=== PATIENT | female | born 1985 | race Caucasian/White ===

== ENCOUNTER 2019-06-13 01:25 | Emergency (ER) | payer OTHER ==
[2019-06-13 02:58] LABS: ABS Basophils 0.1 10^3/ul (0-0.2); ABS Eosinophils 0.1 10^3/ul (0-0.6); ABS Lymphocytes 1.7 10^3/ul (1.0-4.8); ABS Monocytes 0.7 10^3/ul (0-0.8); Eosinophil % 0.6 %; Hematocrit 36 % (35-47); Hemoglobin 12.4 g/dL (12.0-16.0); Mean Corpuscular HGB Conc 35 g/dL (31-36); Mean Corpuscular Hemoglobin 32 pg (27-31); Mean Corpuscular Volume 92 fL (80-97); Mean Platelet Volume 7.2 fL (7.4-10.4); Platelet Count 228 10^3/uL (150-450); Red Blood Count 3.87 10^6 /uL (3.70-4.87); Red Cell Distribution Width 14 % (10-15); White Blood Count 15.6 10^3/uL (3.5-10.8)
[2019-06-13 03:06] LABS: Albumin 3.8 g/dL (3.2-5.2); Calcium 9.6 mg/dL (8.6-10.3); Potassium 3.7 mmol/L (3.5-5.0); Total Bilirubin 0.4 mg/dL (0.2-1.0)
[2019-06-13 03:12] LABS: Albumin/Globulin Ratio 1.5 (1-3); EGFR African American 143.1 (>60); EGFR Non-African American 118.3 (>60); Globulin 2.6 g/dL (2-4); INR 1.01 (0.82-1.09); Total Protein 6.4 g/dL (6.4-8.9)
--- NOTE | 2019-06-13 03:13 | ED ---
- HPI Summary HPI Summary: 33 year old female presents to the ED with a chief complaint of abdominal cramps starting this afternoon. 15 weeks , . Last menstrual cycle . EDC 12/04/19. Patient states she is here from out of town. Patient reports red spotting with normal vaginal discharge when straining trying to have a bowel movement this evening. Abdominal cramps, gradually became worse, and prevented her from sleeping at 2300. She went to the bathroom again. Was able to have a bowel movement and passed gas. She did have more red spotting with wiping. Has not had any blood in the underwear, only with wiping.. she had periodic cramps every 2.5 min in lower abdomen. Patient reports urinating more than usual. No dysuria. She denies any fevers or chills. No nausea vomiting. No back pain. She states they have seen the heartbeat twice on ultrasound. Have not heard it in regular OB visit with a Doppler. She is type O+. FHx HTN, hypothyroidism, and cancer. Patient does not use tobacco, alcohol, or drugs. - History of Current Complaint Chief Complaint: EDOBProblems Stated Complaint: 15 WKS /CRAMPING PER PT Time Seen by Provider: 06/13/19 02:13 Hx Obtained From: Patient Chief Complaint: Pain - Abd cramps, Vaginal Bleeding, Vaginal Discharge Onset/Duration: Started Hours Ago, Still Present Timing: Intermittent - Cramps every 2.5 min, Lasting Hours Severity: Mild Current Severity: Mild Pain Intensity: 3 Location of Pain: Diffuse Character: Cramping Aggravating Factors: Nothing Alleviating Factors: Nothing Associated Signs and Symptoms: Positive: Urinary Symptoms, Vaginal Bleeding or Discharge - Allergies/Home Medications Allergies/Adverse Reactions: Allergies Allergy/AdvReac Type Severity Reaction Status Date / Time cefaclor [From [facility]] Allergy Hives Verified 06/13/19 01:30 Home Medications: Home Medications Cholecalciferol TAB* [Vitamin D TAB*] 1,000 unit PO DAILY 06/13/19 [History Confirmed 06/13/19] Pnv No.95/Ferrous Fum/Folic AC [ Multivitamin Tablet] 1 tab PO DAILY [History Confirmed 06/13/19] PMH/Surg Hx/FS Hx/Imm Hx Sensory History: Denies: Hx Deafness - Immunization History Date of Influenza Vaccine: Fall 2018 Infectious Disease History: No Infectious Disease History: Denies: Traveled Outside the [place] in Last 30 Days - Family History Known Family History: Positive: Hypertension, Other - Cancer - Social History Alcohol Use: None Substance Use Type: Reports: None Smoking Status (MU): Never Smoked Tobacco Review of Systems - ROS Summary Review of Systems Summary: Home Medications Medication Instructions Recorded Confirmed Type Cholecalciferol TAB* [Vitamin D 1,000 unit PO DAILY 06/13/19 06/13/19 History TAB*] Pnv No.95/Ferrous Fum/Folic AC 1 tab PO DAILY 06/13/19 06/13/19 History [ Multivitamin Tablet] Negative: Fever Positive: Abdominal Pain Positive: discharge, frequency, other - spotting All Other Systems Reviewed And Are Negative: Yes Physical Exam - Summary Physical Exam Summary: General: Well-developed, Well-nourished female. No acute distress. HEENT: Normocephalic, Atraumatic. Eyes: Conjuctiva normal, PERRL. Ears: TMs within normal limits. Nares: (-) discharge, (-) erythema. Oropharynx: Clear, mucous membranes moist, (-) exudates. Neck: Soft, FROM, (-) lymphadenopathy, (-) thyromegaly, (-) JVD. Cardiovascular: Normal sinus rhythm, (-) murmur. Lungs: Clear to auscultation bilaterally (-) wheezes, (-) rales, (-) rhonchi. Abdomen: Soft, non-tender, non-distended, (-) organomegaly, normal bowel sounds. Gravid. Fundus 2 finger widths above pelvic bone. Back: (-) CVA tenderness Extremities: No edema. Skin: Warm, dry, (-) rash. Neuro: Alert and oriented x3, no focal deficits. Psychiatric: Mood normal, affect normal. - Physical Exam Triage Information Reviewed: Yes Vital Signs Reviewed: Yes Procedures - Sedation Patient Received Moderate/Deep Sedation with Procedure: No Diagnostics - Vital Signs Vital Signs Temp Pulse Resp BP Pulse Ox 06/13/19 01:47 77 99 06/13/19 01:26 97.6 F 84 16 144/82 100 - Laboratory Result Diagrams: 06/13/19 02:43 06/13/19 02:42 Lab Statement: Any lab studies that have been ordered have been reviewed, and results considered in the medical decision making process. Course/Dx - Course Course Of Treatment: 33-year-old female, at 15 weeks gestation. From out of town. No problems with . Had some abdominal cramping and vaginal blood with wiping after straining to try to have a bowel movement today. She states the cramping became more intense throughout the evening. Went to the bathroom again and was able to have a bowel movement but had a little more spotting with wiping. No significant spotting or discharge in the underwear. She was very nervous so she came in. Her cramping has decreased. No signs or symptoms of acute illness. No fevers chills. No nausea vomiting. Some urinary frequency but no dysuria. No known trauma. Blood work demonstrated slightly elevated white count. Patient is O+. Urine without signs of infection. heart tones are reassuring at 156. Fundus above the pubic bone. Soft. Nontender. Discussed with patient that ultrasound is not available at this time. Patient is advised to be on pelvic rest. Otherwise normal activity. Follow up Friday morning with [facility]. Follow-up sooner for any worsening symptoms. - Diagnoses Provider Diagnoses: Vaginal bleeding during Discharge ED - Sign-Out/Discharge Documenting (check all that apply): Patient Departure - discharge home - Discharge Plan Condition: Stable Disposition: HOME Patient Education Materials: Non-Threatening First Trimester Vaginal Bleed (ED) Referrals: [facility] [Outside] Additional Instructions: Follow up with your primary care provider in 2-3 days, or visit [facility]. Return to the Emergency Room if you experience new or worsened symptoms. - Billing Disposition and Condition Condition: STABLE Disposition: Home - Attestation Statements Document Initiated by Alainaibe: Yes Documenting Scribe: Agustin Salter Provider For Whom Carmen is Documenting (Include Credential): Yessica Crespo MD Scribe Attestation: Agustin Valerio, alainaibed for Yessica Crespo MD on 06/13/19 at 0545. Scribe Documentation Reviewed: Yes Provider Attestation: The documentation as recorded by the scribeAgustin accurately reflects the service I personally performed and the decisions made by me, Yessica Crespo MD Status of Scribe Document: Viewed
[2019-06-13 03:53] LABS: Urine Appearance Clear; Urine Bilirubin Negative (Negative); Urine Blood 1+ (Negative); Urine Color Straw; Urine Glucose Negative (Negative); Urine Ketones Negative (Negative); Urine Nitrite Negative (Negative); Urine Protein Negative (Negative); Urine Specific Gravity 1.005 (1.010-1.030); Urine Urobilinogen Negative (Negative)
[2019-06-13 03:55] LABS: Urine Bacteria Absent (Absent); Urine Red Blood Cell Absent (Absent); Urine Squamous Epithelial Cell Present (Absent); Urine White Blood Cell Trace(0-5/hpf) (Absent)
[2019-06-13 04:22] VITALS: BP 120/86
== END 2019-06-13 04:25 | disposition home or self-care (01) ==
LOC: ED 01:25
DX: O20.9 Hemorrhage in early pregnancy, unspecified (principal); Z3A.15 15 weeks gestation of pregnancy; Z88.1 Allergy status to other antibiotic agents
CPT/HCPCS: 36415; 80053; 81003; 81015; 84702; 85025; 85610; 86900; 86901; 87086; 99283